=== PATIENT | male | born 1960 | race Caucasian/White ===

== ENCOUNTER 2018-04-29 12:59 | Observation (INO) | payer BC ==
[2018-04-29] MEDS: CEFAZOLIN 1 GM/50 ML (PMX) 50 ML IVPB (07:00)
[~2018-04-29 12:59] MED LIST: SOD CHLORIDE 0.45% 1,000 ML IV
[2018-04-29 14:03] LABS: ADD MAN DIFF? NO
[2018-04-29 14:06] LABS: WHITE BLOOD COUNT 6.3 10^3/ul (4.8-10.8)
[2018-04-29 14:06] LABS: BASOPHILS % 0.3 % (0.0-2.0); EOSINOPHILS # 0.2 10^3/ul (0.0-0.5); HEMATOCRIT 41.5 % (42.0-52.0); HEMOGLOBIN 14.4 g/dl (14.0-18.0); LYMPHOCYTES # 1.6 10^3/ul (0.8-2.9); MEAN CORPUSCULAR HEMOGLOBIN 30.4 pg (29.0-33.0); MEAN CORPUSCULAR HGB CONC 34.7 g/dl (32.0-37.0); MEAN CORPUSCULAR VOLUME 87.7 fl (82.0-101.0); MEAN PLATELET VOLUME 12.3 fl (7.4-10.4); MONOCYTE # 0.8 10^3/ul (0.3-0.9); NEUTROPHIL # 3.6 10^3/ul (1.6-7.5); NEUTROPHILS % 58.2 % (39.0-77.0); PLATELET COUNT 142 10^3/UL (140-415); RED BLOOD COUNT 4.73 10^6/ul (4.70-6.10); RED CELL DISTRIBUTION WIDTH 11.4 % (11.5-14.5)
[2018-04-29] MEDS ORDERED: POLYMYXIN/BACITRACIN 1L IRRIG (14:27)
[2018-04-29] MEDS ORDERED: BUPIVACAINE 0.5% (SDV) 30 ML INJ (14:27)
[2018-04-29] MEDS ORDERED: LIDOCAINE 1% (STERILE-PAK) 30 ML INJ (14:27)
[2018-04-29 14:28] LABS: PARTIAL THROMBOPLASTIN TIME 31.5 Sec (23.0-35.0)
[2018-04-29 14:31] LABS: INR 0.98; PROTIME 13.1 Sec (11.9-14.9)
[2018-04-29 14:39] LABS: ANION GAP 11 (5-13); BLOOD UREA NITROGEN 16 mg/dl (7-20); CALCIUM 9.5 mg/dl (8.4-10.2); CARBON DIOXIDE 27 mmol/L (21-31); CHLORIDE 104 mmol/L (97-110); CHOL/HDL RATIO 6.2 RATIO; CHOLESTEROL 156 mg/dl (100-200); CREATININE 0.76 mg/dl (0.61-1.24); Estimated GFR > 60 mL/min (>60); GLUCOSE 96 mg/dl (70-220); HDL CHOLESTEROL 25 mg/dl (28-71); LDL CHOLESTEROL,CALCULATED 92 mg/dl; POTASSIUM 4.3 mmol/L (3.5-5.1); SODIUM 142 mmol/L (135-144); TRIGLYCERIDES 196 mg/dl (0-149)
[2018-04-30] MEDS ORDERED: SOD CHLORIDE 0.9% 500 ML (12:47)
[2018-04-30] MEDS ORDERED: LIDOCAINE 2% (MDV) 20 ML INJ (12:47)
[2018-04-30] MEDS ORDERED: BUPIVACAINE 0.5% (SDV) 30 ML INJ (12:47)
[2018-04-30] MEDS ORDERED: MIDAZOLAM 1 MG/ML 2 ML INJ (12:54)
[2018-04-30] MEDS ORDERED: FENTAnyl 50 MCG/ML VIAL ×2 (12:54→13:58)
[2018-04-30] MEDS ORDERED: PROPOFOL 40 ML (12:55)
[2018-04-30] MEDS ORDERED: LIDOCAINE 2% (SDV) 5 ML INJ (12:55)
[2018-04-30] MEDS ORDERED: IODIXANOL LOCM 50 ML BTL (13:01)
[2018-04-30] MEDS ORDERED: CEFAZOLIN 1 GM/50 ML (PMX) 100 ML IVPB (13:01)
[2018-04-30] MEDS ORDERED: NACL 0.9% 3 ML SYG IV (14:30)
[2018-04-30] MEDS ORDERED: ACETAMINOPHEN 325 MG TAB PO (14:30)
[2018-04-30] MEDS ORDERED: LABETALOL HCL 20MG INJ IV (14:30)
[2018-04-30] MEDS ORDERED: ONDANSETRON 4 MG INJ IV ×2 (14:30→15:00)
[2018-04-30] MEDS ORDERED: FENTAnyl 50 MCG/ML VIAL IV (15:00)
[2018-04-30] MEDS ORDERED: HYDROmorphONE 1 MG/5 ML IV SYRINGE IV (15:00)
[2018-04-30] MEDS ORDERED: MEPERIDINE 25 MG INJ IV (15:00)
[2018-04-30] MEDS ORDERED: DIPHENHYDRAMINE 50 MG INJ IV (15:00)
[2018-04-30] MEDS: morphine 2 MG INJ IV (16:39)
[2018-04-30] MEDS: DIAZEPAM 5 MG TAB PO (17:30)
[2018-04-30] MEDS: FAMOTIDINE 20 MG TAB PO (20:45)
[2018-04-30] MEDS: HYDROCODONE/APAP (5/325) TAB PO (20:45)
[2018-04-30] MEDS: CEFAZOLIN 1 GM/50 ML (PMX) 50 ML IVPB (21:39)
[2018-04-30] MEDS: SACUBITRIL/VALSARTAN (49mg-51mg) TABLET PO (21:45)
[2018-05-01] MEDS: HYDROCODONE/APAP (5/325) TAB PO ×2 (04:45→13:12)
[2018-05-01] MEDS: CEFAZOLIN 1 GM/50 ML (PMX) 50 ML IVPB (05:43)
[2018-05-01 06:46] LABS: ADD MAN DIFF? NO
[2018-05-01 06:53] LABS: WHITE BLOOD COUNT 9.7 10^3/ul (4.8-10.8)
[2018-05-01 06:53] LABS: BASOPHILS % 0.2 % (0.0-2.0); EOSINOPHILS # 0.2 10^3/ul (0.0-0.5); EOSINOPHILS % 1.9 % (0.0-7.0); HEMATOCRIT 39.6 % (42.0-52.0); HEMOGLOBIN 13.7 g/dl (14.0-18.0); LYMPHOCYTES # 1.3 10^3/ul (0.8-2.9); MEAN CORPUSCULAR HEMOGLOBIN 30.9 pg (29.0-33.0); MEAN CORPUSCULAR HGB CONC 34.6 g/dl (32.0-37.0); MEAN CORPUSCULAR VOLUME 89.4 fl (82.0-101.0); MEAN PLATELET VOLUME 12.5 fl (7.4-10.4); MONOCYTE # 0.9 10^3/ul (0.3-0.9); MONOCYTES % 9.6 % (0.0-11.0); NEUTROPHIL # 7.2 10^3/ul (1.6-7.5); PLATELET COUNT 123 10^3/UL (140-415); RED BLOOD COUNT 4.43 10^6/ul (4.70-6.10); RED CELL DISTRIBUTION WIDTH 11.6 % (11.5-14.5)
[2018-05-01 07:22] LABS: ALANINE AMINOTRANSFERASE 46 IU/L (13-69); ALBUMIN 3.7 g/dl (3.3-4.9); ALBUMIN/GLOBULIN RATIO 1.23; ALKALINE PHOSPHATASE 29 IU/L (42-121); ANION GAP 10 (5-13); ASPARTATE AMINO TRANSFERASE 38 IU/L (15-46); BILIRUBIN,INDIRECT 0.5 mg/dl (0-1.1); BILIRUBIN,TOTAL 0.5 mg/dl (0.2-1.3); BLOOD UREA NITROGEN 19 mg/dl (7-20); CALCIUM 8.7 mg/dl (8.4-10.2); CARBON DIOXIDE 25 mmol/L (21-31); CHLORIDE 103 mmol/L (97-110); CREATININE 0.79 mg/dl (0.61-1.24); Estimated GFR > 60 mL/min (>60); GLUCOSE 107 mg/dl (70-220); MAGNESIUM 1.9 mg/dl (1.7-2.5); POTASSIUM 3.9 mmol/L (3.5-5.1); SODIUM 138 mmol/L (135-144); TOTAL PROTEIN 6.7 g/dl (6.1-8.1)
[2018-05-01] MEDS: INFLUENZA VIRUS VACCINE 0.5 ML (DISPENSING) IM* (08:08)
[2018-05-01] MEDS: FAMOTIDINE 20 MG TAB PO (08:09)
[2018-05-01] MEDS: FUROSEMIDE 20 MG TAB PO (08:09)
[2018-05-01] MEDS: ASPIRIN (EC) 81 MG TAB PO (08:09)
[2018-05-01] MEDS: SACUBITRIL/VALSARTAN (49mg-51mg) TABLET PO (08:09)
[2018-05-01] MEDS: DIGOXIN 0.25 MG TAB PO (12:25)
== END 2018-05-01 13:50 | disposition home or self-care (01) ==
LOC: SDS 12:59 → TEL 04-30 14:24
DX: I42.0 Dilated cardiomyopathy (principal); I11.0 Hypertensive heart disease with heart failure; I50.22 Chronic systolic (congestive) heart failure; N40.0 Benign prostatic hyperplasia without lower urinary tract symptoms; K21.9 Gastro-esophageal reflux disease without esophagitis; Z23 Encounter for immunization
CPT/HCPCS: 33249; 71045; 80048; 80053; 80061; 83735; 85025; 85610; 85730; 90686; 93005; G0378